=== PATIENT | male | born 1990 | race Two or more races ===

== ENCOUNTER 2024-09-28 23:21 | Emergency (ER) | payer SELFPAY | END 2024-09-29 01:15 | disposition left against medical advice (07) | LOC: EDSEX 23:27 → ER 23:27 | DX: N50.9 Disorder of male genital organs, unspecified (principal); R59.9 Enlarged lymph nodes, unspecified; Z53.21 Procedure and treatment not carried out due to patient leaving prior to being seen by health care provider ==